=== PATIENT | male | born 1980 | race African-American/Black ===

== ENCOUNTER 2018-04-13 10:08 | Emergency (ER) | payer OTHER ==
[~2018-04-13] VITALS: Ht 180.3 cm; Wt 79.4 kg
[2018-04-13] MEDS ORDERED: HYDROcodone-ACET 10/325MG TAB PO ONE (11:15)
[2018-04-13 12:05] VITALS: BP 111/71
== END 2018-04-13 13:51 | disposition home or self-care (01) ==
LOC: ER 10:08
DX: N50.82 Scrotal pain (principal)
CPT/HCPCS: 76870